=== PATIENT | female | born 1995 | race African-American/Black ===

== ENCOUNTER 2018-03-20 15:47 | Emergency (ER) | payer BC ==
[~2018-03-20] VITALS: Ht 160 cm; Wt 60.0 kg
[2018-03-20 16:13] VITALS: BP 124/54; PULSE 111; RESP 16; TEMP 98.6; O2SAT 99
[2018-03-20 17:04] LABS: BACTERIA, URINE MOD /hpf; BLOOD, URINE LARGE (NEG); GLUCOSE,URINE NEG (NEG); KETONE, URINE NEG (NEG); NITRITE,URINE POS (NEG); PH, URINE 8.5 (5.0-8.5); SQUAMOUS EPITHELIAL CELL URINE 8 /hpf (0-5); URINE COLOR DARK-BROWN (YELLW/STRAW); URINE LEUKOCYTE ESTERASE LARGE (NEG)
[2018-03-20 17:05] LABS: BILIRUBIN, URINE NEG (NEG)
--- NOTE | 2018-03-20 17:36 | PD ---
HPI Chief Complaint: Complaint Time Seen by Provider: 17:15 Travel History International Travel<30 days: No Contact w/Intl Traveler<30days: No Traveled to known affect area: No History of Present Illness HPI patient c/o urinary frequency, urgency and dysuria for last 3 days....patient also states some noted blood in urine. patient denies martinez/fever/rash/n/v/d/cp/ abd pain/. patient is actively trying to get and has already had a miscarriage about 10 weeks ago. so her secondary question is wether she is currently . pt denies any alleviating/aggravating factors all:denies patient denies any significant pmhx/pshx PFSH Past Medical History LMP: NOW Social History Tobacco Use: No Allergies-Medications (Allergen,Severity, Reaction): Coded Allergies: No Known Allergies (Unverified , 03/20/18) Review of Systems General / Constitutional: No: Fever Eyes: No: Visual changes HENT: No: Headaches Cardiovascular: No: Chest Pain or Discomfort Respiratory: No: Shortness of Breath Gastrointestinal: No: Abdominal Pain Genitourinary: Positive: Urgency, Frequency, Dysuria, Hematuria Musculoskeletal: No: Pain Skin: No Rash Neurologic: No: Weakness Psychiatric: No: Depression Endocrine: No: Polydipsia Hematologic/Lymphatic: No: Easy Bruising Physical Exam Narrative GENERAL: SKIN: Warm and dry. HEAD: Atraumatic. Normocephalic. EYES: Pupils equal and round. No scleral icterus. No injection or drainage. ENT: No nasal bleeding or discharge. Mucous membranes pink and moist. NECK: Trachea midline. No JVD. CARDIOVASCULAR: Regular rate and rhythm. RESPIRATORY: No accessory muscle use. Clear to auscultation. Breath sounds equal bilaterally. GASTROINTESTINAL: Abdomen soft, non-tender, nondistended. MUSCULOSKELETAL: Extremities without clubbing, cyanosis, or edema. No obvious deformities. NEUROLOGICAL: Awake and alert. No obvious cranial nerve deficits. Motor grossly within normal limits. Five out of 5 muscle strength in the arms and legs. Normal speech. PSYCHIATRIC: Appropriate mood and affect; insight and judgment normal. Data Data Last Documented VS Vital Signs Date Time Temp Pulse Resp B/P (MAP) Pulse Ox O2 Delivery O2 Flow Rate FiO2 03/20/18 18:36 78 16 126/58 (80) 98 03/20/18 16:13 98.6 Orders Orders Urinalysis - C+S If Indicated (03/20/18 16:15) Ed Urine Pregnancytest Poc (03/20/18 16:16) Urine Culture (03/20/18 16:23) Ketorolac (Toradol) (03/20/18 17:45) Nitrofurantoin Monohyd Macrocr (Macrobid (03/20/18 17:45) Ed Discharge Order (03/20/18 18:48) Labs Laboratory Tests Test 03/20/18 16:23 Urine Color DARK-BROWN Urine Turbidity CLOUDY Urine pH 8.5 Urine Specific Cade 1.021 Urine Protein 300 mg/dL Urine Glucose (UA) NEG mg/dL Urine Ketones NEG mg/dL Urine Occult Blood LARGE Urine Nitrite POS Urine Bilirubin NEG Urine Urobilinogen 8.0 MG/DL Urine Leukocyte Esterase LARGE Urine RBC /hpf Urine WBC /hpf Urine Squamous Epithelial Cells 8 /hpf Urine Bacteria MOD /hpf Microscopic Urinalysis Comment CULTURE INDICATED MDM Medical Decision Making Medical Screen Exam Complete: Yes Emergency Medical Condition: Yes Medical Record Reviewed: Yes Differential Diagnosis related versus UTI versus urethritis versus vaginitis Narrative Course UA shows evidence of UTI test negative Diagnosis Primary Impression: uti Patient Instructions: General Instructions, Urinary Tract Infection in Women ( DC) Scripts Tramadol (Ultram) 50 Mg Tab 50 MG PO Q8H Y for PAIN, #6 TAB 0 Refills Prov: Kiko Dempsey MD 03/20/18 Nitrofurantoin Macrocrystal (Macrodantin) 100 Mg Cap 100 MG PO BID for 10 Days, #20 CAP 0 Refills Prov: Kiko Dempsey MD 03/20/18 Disposition: 01 DISCHARGE HOME Condition: Stable Kiko Dempsey MD March 20, 2018 17:36
[2018-03-20] MEDS ORDERED: KETOROLAC TROMETHAMINE 10 MG TAB PO ONE (17:45)
[2018-03-20] MEDS ORDERED: NITROFURANTOIN MONOHYD MACROCR 100 MG CAP PO ONE (17:45)
[2018-03-20 18:36] VITALS: BP 126/58
[2018-03-20] MEDS ORDERED: MACR100C3 PO (18:50)
[2018-03-20] MEDS ORDERED: TRAM50 PO (18:50)
== END 2018-03-20 19:07 | disposition home or self-care (01) ==
LOC: NEPD 15:47
DX: N39.0 Urinary tract infection, site not specified (principal)
CPT/HCPCS: 81001; 84703; 87086; 99283